=== PATIENT | male | born 1990 | race Two or more races ===

== ENCOUNTER 2018-06-03 06:27 | Emergency (ER) | payer OTHER ==
[~2018-06-03] VITALS: Ht 175.3 cm; Wt 77.1 kg
== END 2018-06-03 08:57 | disposition home or self-care (01) ==
LOC: ER 06:27
DX: B34.9 Viral infection, unspecified (principal); J11.1 Influenza due to unidentified influenza virus with other respiratory manifestations

== ENCOUNTER 2019-11-27 11:45 | Emergency (ER) | payer OTHER ==
[~2019-11-27] VITALS: Ht 175.3 cm; Wt 77.1 kg
== END 2019-11-27 13:15 | disposition home or self-care (01) ==
LOC: ER 11:45
DX: S91.212A Laceration without foreign body of left great toe with damage to nail, initial encounter (principal); W23.0XXA Caught, crushed, jammed, or pinched between moving objects, initial encounter; Y93.89 Activity, other specified; Y92.89 Other specified places as the place of occurrence of the external cause; Y99.8 Other external cause status